=== PATIENT | male | born 1935 | race Caucasian/White ===

== ENCOUNTER 2021-04-26 11:14 | Emergency (ER) | payer OTHER ==
[2021-04-26 13:34] LABS: Absolute Lymphocytes (CBC) 1.4 K/uL (0.7-4.9); Basophils % 0.1 % (0-1.3); Hematocrit 34.3 % (39.6-49.0); Lymphocytes % 22.9 % (15.3-44.8); MPV 7.4 fL (7.6-11.3); RBC Red Blood Cell Count 3.34 M/uL (4.33-5.43)
[2021-04-26 13:36] LABS: Protime INR 0.98
[2021-04-26 13:53] LABS: ALT/SGPT 29 U/L (12-78); AST/SGOT 27 U/L (15-37); Albumin 3.2 g/dL (3.4-5.0); Alkaline Phosphatase 167 U/L (45-117); BUN Blood Urea Nitrogen 20 mg/dL (7-18); Bicarbonate 28 mmol/L (21-32); Bilirubin Direct < 0.1 mg/dL (0-0.2); Bilirubin Total 0.2 mg/dL (0.2-1.0); Glucose Level 174 mg/dL (74-106); Magnesium 2.2 mg/dL (1.8-2.4); NT PRO-BNP 1092 pg/mL (<450); Potassium 4.7 mmol/L (3.5-5.1); Protein, Total 7.2 g/dL (6.4-8.2); Sodium Level 141 mmol/L (136-145); Troponin (Emerg Dept Use Only) < 0.02 ng/mL (0.0-0.045)
--- NOTE | 2021-04-26 16:10 | RAD REPORT ---
EXAM DESCRIPTION: CT - Head Brain Wo Cont - 04/26/2021 3:56 pm CLINICAL HISTORY: cva COMPARISON: No comparisons TECHNIQUE: Axial 5 mm thick images of the head were obtained without IV contrast. All CT scans are performed using dose optimization technique as appropriate and may include automated exposure control or mA/KV adjustment according to patient size. FINDINGS: No intracranial hemorrhage is present. There is an extensive vasogenic edema pattern throu ghout the frontal and parietal lobe in the right cerebral hemisphere. A 2.8 centimeter more cystic or hypodense collection is present in the right parietal lobe. This is a pattern typical for primary or metastatic malignant process. There is some cerebral mass effect but no more than 1-2 mm of right to left shift. No acute cortical based infarction identified. Patient has underlying atrophy and chroni c ischemic change. There is heterogeneity and diminished attenuation in the each cerebellar hemispher e concerning for vasogenic edema as well. No abnormal extra-axial fluid collections. Ventricles are i n proportion to volume loss. Mastoid air cells and visualized portions of the paranasal sinuses are clear. No acute bony findings. IMPRESSION: Significant vasogenic edema pattern in the right cerebral frontal and parietal lobes wit h 2.8 centimeter cystic component in the right parietal lobe. Probable vasogenic edema pattern in each cerebellar hemisphere. 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 Primary malignancy is possible as well. No intracranial hemorrhage present. Mass effect is minimal with no more than 1-2 mm of right to left midline shift.
--- NOTE | 2021-04-26 16:54 | RAD REPORT ---
EXAM DESCRIPTION: CT - Chest Abdomen Pelvis W Cont - 04/26/2021 4:37 pm CLINICAL HISTORY: concern for metastatic disease, evidence for malignant process of the head COMPARISON: No comparisons TECHNIQUE: Following dynamic enhancement using 100 milliliters nonionic IV contrast, axial imaging o f the chest, abdomen and pelvis was performed. Biphasic technique was utilized through the abdomen. No oral contrast administered. All CT scans are performed using dose optimization technique as appropriate and may include automated exposure control or mA/KV adjustment according to patient size. FINDINGS: Pleural and parenchymal scarring changes are present in the right apex. There is a small l oculated pleural effusion at the right lung base posteriorly. There is a curvilinear focus of soft ti ssue abutting the loculated pleural fluid in the posterior right base approximately 4 cm in length by 1 cm transverse. This is more likely be scarring than mass lesion. There postsurgical changes eviden t at the right hilum from a prior lobectomy. No history was provided to indicate prior lung malignanc y history. There are scarring changes present associated with the prior lobectomy change. Overall rig ht hemithorax volume is reduced relative to the hyperexpanded left lung field. Left lung field is jess ar. No left-sided pleural effusion. There is no pneumothorax. Coronary artery calcifications are present. No cardiomegaly or pericardial effusion. No significant a ortic or pulmonary arterial tree finding. Mediastinal and hilar regions show no mass or abnormal lymp hadenopathy. No chest wall mass or axillary lymphadenopathy. The liver, spleen and pancreas show no suspicious findings. Gallbladder and biliary tree are unremark able. Gallstones can be occult on CT imaging. Symmetric renal function is seen with no suspicious ma ss or hydronephrosis. No adrenal abnormalities. No colon mass or acute GI process identified. Appendix is normal. Disc and bone degenerative changes are present. No pathologic bone process identified. No significant vascular findings. Dense arterial tree calcifications are present. IMPRESSION: No malignant mass, lymphadenopathy or other finding for active malignant process of the chest, abdomen and pelvis. Patient has evidence for a right lobectomy with postsurgical changes evident at the hilum and a locul ated small pleural effusion in the posterior gutter. Nodular parenchyma adjacent to the loculated ple ural effusion is probably scarring. This is not a typical appearance for mass. Correlation is needed with a history of right-sided lung malignancy necessitating a lobectomy.
--- NOTE | 2021-04-26 18:10 | RAD REPORT ---
EXAM DESCRIPTION: MRI - Brain W/Wo Cont - 04/26/2021 5:22 pm CLINICAL HISTORY: vasogenic edema with mass, abnormal CT of the head, subsequent history since the C T head and CT chest abdomen pelvis examinations indicates right-sided lung cancer history detailed by patient as stage I COMPARISON: Head Brain Wo Cont dated 04/26/2021 TECHNIQUE: Sagittal and axial T1-weighted images were obtained. Axial PD/heavily T2-weighted and T2- FLAIR images were obtained along with axial DWI/ADC mapping sequences. Coronal heavily T2 weighted s equence obtained. Axial and coronal post-contrast T1-weighted images were also obtained. A ml Multi higinio contrast following utilized. Coronal T2 hemo sequence obtained FINDINGS: The extensive right cerebral vasogenic edema pattern seen on the CT study is evident on th is examination most pronounced in the parietal lobe. The cystic mass component seen on the CT study i s also present. This is a 4.7 centimeter lobulated mass. This is predominantly cystic. However, the p ostcontrast images show a thickened irregular nodular enhancement. The vasogenic edema pattern does e xtend into the cortex where there is sulcal effacement in the right parietal lobe. The edema and mass effect create 2 mm of right to left midline shift. Bilateral cerebellar hemisphere edema pattern is also present. There is a 12 millimeter enhancing le ky in inferior right cerebellum and a 10 millimeter enhancing lesion in the superior left cerebellu m. There are several additional punctate areas of enhancement in each cerebellum. Punctate areas of e nhancement are seen in the dimitri. Post-contrast imaging shows numerous additional small enhancing lesi ons scattered throughout both cerebral hemispheres. The smaller lesions do not have any significant e nathalia component. The T2 hemo sequence shows serpiginous hypointense areas around the periphery of the right parietal m ass. There is hypointense signal is well around the 2 main cerebellum lesions. No acute intraparenchy mal hematoma is present. No dural thickening or enhancement. No globe or orbital content abnormality. IMPRESSION: Very extensive intracranial metastatic process is present. The patient has a dominant 4. 7 centimeter lobulated mixed solid and cystic enhancing mass with surrounding vasogenic edema within the right parietal lobe. This creates 2 mm of right to left midline shift. The patient has numerous additional metastatic lesions as detailed scattered throughout both cerebral hemispheres, both cerebellar hemispheres and the brainstem.
--- NOTE | 2021-04-26 18:39 | EDPHYS ---
Physician Documentation [facility] Name: Fahad Gage Age: 85 yrs Sex: Male : 1935 Arrival Date: 04/26/2021 Time: 11:15 Bed 5 Private MD: ED Physician Julian Velasco HPI: 04/26 15:50 This 85 yrs old Male presents to ER via Wheelchair with complaints of LEFT SIDE jr8 WEAKNESS. 15:50 This is an 85-year-old male patient that presented to the emergency room for increased jr8 left-sided weakness. Family stated that the weakness began on Sunday and then has continued since then getting worse each day. Patient stated that he is having trouble with walking and ability to utilize his left hand with activities that he normally performs during the day. Has had mild right-sided headaches but denies any other neurologic symptoms at this time.. Historical: - Allergies: 13:03 Anti Inflammatory; ld1 - PMHx: 13:03 Diabetes mellitus; Chronic Kidney Disease; Hypertensive disorder; Anemia; Neuropathy; ld1 Tremors; - PSHx: 13:03 Open heart surgery; Lobectomy of lung; ld1 - Immunization history:: Adult Immunizations not up to date, Client reports having NOT received the Covid vaccine. - Social history:: Smoking status: Patient denies any tobacco usage or history of. Patient/guardian denies using alcohol. ROS: 16:24 Eyes: Negative for injury, pain, redness, and discharge, ENT: Negative for injury, jr8 pain, and discharge, Neck: Negative for injury, pain, and swelling, Cardiovascular: Negative for chest pain, palpitations, and edema, Respiratory: Negative for shortness of breath, cough, wheezing, and pleuritic chest pain, Abdomen/GI: Negative for abdominal pain, nausea, vomiting, diarrhea, and constipation, Back: Negative for injury and pain, MS/Extremity: Negative for injury and deformity, Skin: Negative for injury, rash, and discoloration. 16:24 Neuro: Positive for headache, numbness, weakness. Exam: 16:24 Radiologist reports: Amount of vasogenic edema to the right cerebrum with lesion in the jr8 right occipital lobe 16:24 Eyes: Pupils equal round and reactive to light, extra-ocular motions intact. Lids and lashes normal. Conjunctiva and sclera are non-icteric and not injected. Cornea within normal limits. Periorbital areas with no swelling, redness, or edema. ENT: Nares patent. No nasal discharge, no septal abnormalities noted. Tympanic membranes are normal and external auditory canals are clear. Oropharynx with no redness, swelling, or masses, exudates, or evidence of obstruction, uvula midline. Mucous membranes moist. Neck: Trachea midline, no thyromegaly or masses palpated, and no cervical lymphadenopathy. Supple, full range of motion without nuchal rigidity, or vertebral point tenderness. No Meningismus. Cardiovascular: Regular rate and rhythm with a normal S1 and S2. No gallops, murmurs, or rubs. Normal PMI, no JVD. No pulse deficits. Respiratory: Lungs have equal breath sounds bilaterally, clear to auscultation and percussion. No rales, rhonchi or wheezes noted. No increased work of breathing, no retractions or nasal flaring. Abdomen/GI: Soft, non-tender, with normal bowel sounds. No distension or tympany. No guarding or rebound. No evidence of tenderness throughout. Skin: Warm, dry with normal turgor. Normal color with no rashes, no lesions, and no evidence of cellulitis. MS/ Extremity: Pulses equal, no cyanosis. Neurovascular intact. Full, normal range of motion. 16:24 Neuro: Orientation: to person, place, time \\T\\ situation. Mentation: is normal, Memory: is normal, immediate memory is intact, recent memory is intact, remote memory is intact, Cranial nerves: CN I not tested, CN II- XII are normal as tested, visual degroot are intact. extraocular movements are intact, Facial palsy and sensory deficits are absent. Nystagmus is absent. Speech is clear and appropriate. Tongue strength is normal, Cerebellar function: dysmetria is noted on the left, Motor: moves all fours, Sensation: numbness, that is mild, of the face and left arm, Gait: is unsteady, seizure activity, is not displayed by the patient, Abnormal movements: there are no abnormal movements. Vital Signs: 12:57 BP 185 / 74; Pulse 74; Resp 18; Temp 97.4(TE); Pulse Ox 100% on R/A; Weight 75.3 kg; ld1 Height 5 ft. 9 in. (175.26 cm); Pain 0/10; 15:24 BP 130 / 110; Pulse 74; Resp 14 S; Pulse Ox 99% on R/A; jd3 18:35 BP 125 / 96; Pulse 70; Resp 16 S; Pulse Ox 100% on R/A; jd3 20:47 BP 145 / 86; Pulse 69; Resp 10; Pulse Ox 98% on R/A; Pain 0/10; tw5 12:57 Body Mass Index 24.51 (75.30 kg, 175.26 cm) ld1 NIH Stroke Scale Scores: 15:17 NIHSS Score: 3 jd3 16:24 NIHSS Score: 4 jr8 MDM: 15:03 Patient medically screened. jr8 18:39 Data reviewed: vital signs, nurses notes, lab test result(s), EKG, radiologic studies, [facility] CT scan, MRI, plain films. Data interpreted: Pulse oximetry: on room air is 100 %. Interpretation: normal. Counseling: I had a detailed discussion with the patient and/or guardian regarding: the historical points, exam findings, and any diagnostic results supporting the discharge/admit diagnosis, lab results, radiology results, the need to transfer to another facility, [facility] does not immediately have the required specialist. 04/26 13:19 Order name: Basic Metabolic Panel; Complete Time: 15: [facility] 04/26 13:19 Order name: CBC with Diff; Complete Time: 15: 04/26 13:19 Order name: LFT's; Complete Time: 15: [facility] 04/26 13:19 Order name: Magnesium; Complete Time: 15: [facility] 04/26 13:19 Order name: NT PRO-BNP; Complete Time: 15:03 [facility] 04/26 13:19 Order name: PT-INR; Complete Time: 15:03 [facility] 04/26 13:19 Order name: Troponin (emerg Dept Use Only); Complete Time: 15: [facility] 04/26 15:21 Order name: CT Head Brain wo Cont; Complete Time: 16:17 [facility] 04/26 16:18 Order name: CT Chest, Abdomen, Pelvis - W/Contrast; Complete Time: 16:58 [facility] 04/26 16:34 Order name: COVID-19 SARS RT PCR (Document "Date of Onset" if Symptomatic) 04/26 16:34 Order name: SARS-COV-2 RT PCR; Complete Time: 19:38 EDMS 04/26 17:22 Order name: Brain W/Wo Cont; Complete Time: 18:16 EDMS 04/26 13:12 Order name: EKG - Nurse/Tech; Complete Time: 13:16 ld1 04/26 13:19 Order name: EKG; Complete Time: 13:20 ld1 04/26 13:19 Order name: Cardiac monitoring; Complete Time: 15:05 ld1 04/26 13:19 Order name: EKG - Nurse/Tech; Complete Time: 13:19 ld1 04/26 13:19 Order name: IV Saline Lock; Complete Time: 13:19 ld1 04/26 13:19 Order name: Labs collected and sent; Complete Time: 13:19 ld1 04/26 13:19 Order name: O2 Per Protocol; Complete Time: 13:19 ld1 04/26 13:19 Order name: O2 Sat Monitoring; Complete Time: 13:19 ld1 Administered Medications: 18:50 Drug: Decadron - Dexamethasone 10 mg Route: IVP; Site: left antecubital; jd3 20:48 Follow up: Response: No adverse reaction tw5 21:15 Drug: Primidone 100 mg Route: PO; tw5 Disposition: 04/27 09:23 Co-signature as Attending Physician, Julian Velasco MD I agree with the assessment and luiza plan of care. Disposition Summary: 04/26/21 18:39 Transfer Ordered Transfer Location: [facility] jr8 Reason: Higher level of care jr8 Condition: Fair jr8 Problem: new jr8 Symptoms: are unchanged jr8 Accepting Physician: Dr. Macias(04/26/21 22:36) df1 Diagnosis - Neoplasm of uncertain behavior of brain, unspecified jr8 - Cerebral edema - Vasogenic Edema jr8 - Ataxic gait jr8 Forms: - Medication Reconciliation Form jr8 - SBAR form jr8 NIH Stroke Scale - NIH Stroke Score Date: 04/26/2021 Time: 15:17 Total Score = 3 1a. Level of Consciousness (LOC) - 0(Alert) 1b. Level of Consciousness (LOC) (Month \\T\\ Age) - 0(Both) 1c. LOC Commands (Open \\T\\ Closes Eyes/Booster Operator) - 0(Both) 2. Best Gaze (Lateral Gaze Paresis) - 0(Normal) 3. Visual Field Loss - 0(No visual loss) 4. Facial Palsy - 0(Normal) 5a. Left Arm: Motor (10-second hold) - 1(Drift) 5b. Right Arm: Motor (10-second hold) - 0(No drift) 6a. Left Leg: Motor (5-second hold - always test supine) - 1(Drift) 6b. Right Leg: Motor (5-second hold - always test supine) - 0(No drift) 7. Limb Ataxia (finger/nose \\T\\ heel/nunez - test with eyes open) - 1(Present in one limb) 8. Sensory Loss (pinprick arms/legs/face) - 0(Normal) 9. Best Language: Aphasia (description/naming/reading) - 0(No aphasia) 10. Dysarthria (speech clarity - read or repeat words) - 0(Normal) 11. Extinction and Inattention (visual/tactile/auditory/spatial/personal) - 0(No abnormality) Initials: jd3 NIH Stroke Scale - NIH Stroke Score Date: 04/26/2021 Time: 16:24 Total Score = 4 1a. Level of Consciousness (LOC) - 0(Alert) 1b. Level of Consciousness (LOC) (Month \\T\\ Age) - 0(Both) 1c. LOC Commands (Open \\T\\ Closes Eyes/Booster Operator) - 0(Both) 2. Best Gaze (Lateral Gaze Paresis) - 0(Normal) 3. Visual Field Loss - 0(No visual loss) 4. Facial Palsy - 0(Normal) 5a. Left Arm: Motor (10-second hold) - 1(Drift) 5b. Right Arm: Motor (10-second hold) - 0(No drift) 6a. Left Leg: Motor (5-second hold - always test supine) - 1(Drift) 6b. Right Leg: Motor (5-second hold - always test supine) - 0(No drift) 7. Limb Ataxia (finger/nose \\T\\ heel/nunez - test with eyes open) - 1(Present in one limb) 8. Sensory Loss (pinprick arms/legs/face) - 1(Mild to moderate loss) 9. Best Language: Aphasia (description/naming/reading) - 0(No aphasia) 10. Dysarthria (speech clarity - read or repeat words) - 0(Normal) 11. Extinction and Inattention (visual/tactile/auditory/spatial/personal) - 0(No abnormality) Initials: lima Signatures: Dispatcher [employer] EDMS Julian Velasco MD MD cha Roszak, Josh, PA PA jr8 Torito Mancilla RN RN jd3 Jessica Buck RN RN ld1 Nicole Nichole df1 Yesenia Tse tw5 Corrections: (The following items were deleted from the chart) 04/26 13:09 13:03 Allergies: No Known Allergies; ld1 ld1 17:22 16:19 Brain Wo Cont+MRI.RAD.BRZ ordered. [facility] EDMS 21:52 18:39 [facility] jr8 jr8 22:36 21:52 Dr. Macias jr8 df1
--- NOTE | 2021-04-26 18:39 | ER ---
Nurse's Notes [facility] Name: Fahad Gage Age: 85 yrs Sex: Male : 1935 Arrival Date: 04/26/2021 Time: 11:15 Bed 5 Private MD: Diagnosis: Neoplasm of uncertain behavior of brain, unspecified;Cerebral edema-Vasogenic Edema;Ataxic gait Presentation: 04/26 12:57 Chief complaint: Patient states: I received an injection for low iron about a week ago ld1 - Sunday I began losing my balance and feeling extremely dizzy, I have had three falls this week. Pt reports hitting head yesterday when he fell. Sunday noticed the left side of his body became weak and left foot has been dragging. Coronavirus screen: At this time, the client does not indicate any symptoms associated with coronavirus-19. Ebola Screen: No symptoms or risks identified at this time. Initial Sepsis Screen: Does the patient meet any 2 criteria? No. Patient's initial sepsis screen is negative. Does the patient have a suspected source of infection? No. Patient's initial sepsis screen is negative. Risk Assessment: Do you want to hurt yourself or someone else? Patient reports no desire to harm self or others. Onset of symptoms was April 26, 2021. 12:57 Method Of Arrival: Wheelchair ld1 12:57 Acuity: ELI 3 ld1 Triage Assessment: 13:03 General: Appears in no apparent distress. comfortable, Behavior is calm, cooperative, ld1 appropriate for age. Pain: Denies pain. EENT: No signs and/or symptoms were reported regarding the EENT system. Neuro: Level of Consciousness is awake, alert, obeys commands, Oriented to person, place, time, situation, Appropriate for age. Neuro: Reports dizziness, weakness in left hand, left foot, left arm and left leg. Cardiovascular: Capillary refill < 3 seconds Patient's skin is warm and dry. Respiratory: Airway is patent Respiratory effort is even, unlabored, Respiratory pattern is regular, symmetrical. GI: Abdomen is flat, non-distended. : No signs and/or symptoms were reported regarding the genitourinary system. Derm: No signs and/or symptoms reported regarding the dermatologic system. Musculoskeletal: No signs and/or symptoms reported regarding the musculoskeletal system. Historical: - Allergies: 13:03 Anti Inflammatory; ld1 - PMHx: 13:03 Diabetes mellitus; Chronic Kidney Disease; Hypertensive disorder; Anemia; Neuropathy; ld1 Tremors; - PSHx: 13:03 Open heart surgery; Lobectomy of lung; ld1 - Immunization history:: Adult Immunizations not up to date, Client reports having NOT received the Covid vaccine. - Social history:: Smoking status: Patient denies any tobacco usage or history of. Patient/guardian denies using alcohol. Screenin:17 Abuse screen: Denies threats or abuse. Nutritional screening: No deficits noted. jd3 Tuberculosis screening: No symptoms or risk factors identified. VAN Screening: Arm Drift: Minor drift. Visual Disturbance: No visual disturbance noted. Aphasia: No aphasia noted. Neglect: No neglect noted. Fall Risk Ambulatory Aid- None/Bed Rest/Nurse Assist (0 pts). Gait- Normal/Bed Rest/Wheelchair (0 pts) Mental Status- Oriented to own ability (0 pts). Total Calabrese Fall Scale indicates No Risk (0-24 pts). Assessment: 15:21 General: Appears comfortable, Behavior is calm, cooperative, appropriate for age. Pain: jd3 Denies pain. Neuro: Level of Consciousness is awake, alert, obeys commands, Oriented to person, place, time, situation, Orthopedic Physical Therapist are weak on left Weakness in left arm(s) leg(s) Gait is unsteady, Speech is normal, Facial symmetry appears normal, Pupils are PERRLA, Intact Reports numbness weakness in left side of body since 04-23-21. Cardiovascular: Denies chest pain, Capillary refill < 3 seconds Patient's skin is warm and dry. Rhythm is regular. Respiratory: Airway is patent Respiratory effort is even, unlabored, Respiratory pattern is regular, symmetrical, Denies cough, shortness of breath. GI: No signs and/or symptoms were reported involving the gastrointestinal system. : No signs and/or symptoms were reported regarding the genitourinary system. EENT: No signs and/or symptoms were reported regarding the EENT system. Derm: Skin is intact, Skin is dry, Skin is normal, Skin temperature is warm. Musculoskeletal: Range of motion: limited on left side of body due to weakness. 16:33 Reassessment: Patient appears in no apparent distress at this time. Patient and/or jd3 family updated on plan of care and expected duration. Pain level reassessed. Patient is alert, oriented x 3, equal unlabored respirations, skin warm/dry/pink. pt to go for MRI. 18:10 Reassessment: Patient appears in no apparent distress at this time. Patient and/or jd3 family updated on plan of care and expected duration. Pain level reassessed. Patient is alert, oriented x 3, equal unlabored respirations, skin warm/dry/pink. pt back from MRI. provider at bedside talking with family about plan of care. 20:47 General: Reports " I am hungry, I have not eaten all day" Nursing staff stated they tw5 would ask if patient is allowed anything by mouth. Pain: Denies pain. 21:15 General: Behavior is calm, cooperative, appropriate for age. tw5 Vital Signs: 12:57 BP 185 / 74; Pulse 74; Resp 18; Temp 97.4(TE); Pulse Ox 100% on R/A; Weight 75.3 kg; ld1 Height 5 ft. 9 in. (175.26 cm); Pain 0/10; 15:24 BP 130 / 110; Pulse 74; Resp 14 S; Pulse Ox 99% on R/A; jd3 18:35 BP 125 / 96; Pulse 70; Resp 16 S; Pulse Ox 100% on R/A; jd3 20:47 BP 145 / 86; Pulse 69; Resp 10; Pulse Ox 98% on R/A; Pain 0/10; tw5 12:57 Body Mass Index 24.51 (75.30 kg, 175.26 cm) ld1 NIH Stroke Scale Scores: 15:17 NIHSS Score: 3 jd3 16:24 NIHSS Score: 4 jr8 ED Course: 11:15 Patient arrived in ED. kc5 13:03 Triage completed. ld1 13:03 Arm band placed on right wrist. ld1 13:20 Inserted saline lock: 20 gauge in left antecubital area, using aseptic technique. Blood ld1 collected. 15:03 Johan Lombardi PA is PHCP. jr8 15:03 Julian Velasco MD is Attending Physician. jr8 15:05 Torito Mancilla RN is Primary Nurse. jd3 15:21 Patient has correct armband on for positive identification. Placed in gown. Bed in low jd3 position. Call light in reach. Side rails up X2. Adult w/ patient. monitor technician on. Pulse ox on. NIBP on. 15:56 CT Head Brain wo Cont In Process Unspecified. EDMS 16:38 CT Chest, Abdomen, Pelvis - W/Contrast In Process Unspecified. EDMS 17:22 Brain W/Wo Cont In Process Unspecified. EDMS 20:19 connected Johan Lombardi with the Hospitalist from [facility]. mw2 20:47 Door closed. Noise minimized. Moved to private room. Warm blanket given. Verbal tw5 reassurance given. 20:51 adminsitrative approval given by Milagros Moralez/ patient has been accepted to [address] bed 2426/ Dr. Donohue accepted the patient in transfer/ report to be called to [phone]. Administered Medications: 18:50 Drug: Decadron - Dexamethasone 10 mg Route: IVP; Site: left antecubital; jd3 20:48 Follow up: Response: No adverse reaction tw5 21:15 Drug: Primidone 100 mg Route: PO; tw5 Outcome: 18:39 ER care complete, transfer ordered by jr8 22:36 Patient left the ED. df1 NIH Stroke Scale - NIH Stroke Score Date: 04/26/2021 Time: 15:17 Total Score = 3 1a. Level of Consciousness (LOC) - 0(Alert) 1b. Level of Consciousness (LOC) (Month \\T\\ Age) - 0(Both) 1c. LOC Commands (Open \\T\\ Closes Eyes/Sat Act Instructor) - 0(Both) 2. Best Gaze (Lateral Gaze Paresis) - 0(Normal) 3. Visual Field Loss - 0(No visual loss) 4. Facial Palsy - 0(Normal) 5a. Left Arm: Motor (10-second hold) - 1(Drift) 5b. Right Arm: Motor (10-second hold) - 0(No drift) 6a. Left Leg: Motor (5-second hold - always test supine) - 1(Drift) 6b. Right Leg: Motor (5-second hold - always test supine) - 0(No drift) 7. Limb Ataxia (finger/nose \\T\\ heel/nunez - test with eyes open) - 1(Present in one limb) 8. Sensory Loss (pinprick arms/legs/face) - 0(Normal) 9. Best Language: Aphasia (description/naming/reading) - 0(No aphasia) 10. Dysarthria (speech clarity - read or repeat words) - 0(Normal) 11. Extinction and Inattention (visual/tactile/auditory/spatial/personal) - 0(No abnormality) Initials: ryan NIH Stroke Scale - NIH Stroke Score Date: 04/26/2021 Time: 16:24 Total Score = 4 1a. Level of Consciousness (LOC) - 0(Alert) 1b. Level of Consciousness (LOC) (Month \\T\\ Age) - 0(Both) 1c. LOC Commands (Open \\T\\ Closes Eyes/Sat Act Instructor) - 0(Both) 2. Best Gaze (Lateral Gaze Paresis) - 0(Normal) 3. Visual Field Loss - 0(No visual loss) 4. Facial Palsy - 0(Normal) 5a. Left Arm: Motor (10-second hold) - 1(Drift) 5b. Right Arm: Motor (10-second hold) - 0(No drift) 6a. Left Leg: Motor (5-second hold - always test supine) - 1(Drift) 6b. Right Leg: Motor (5-second hold - always test supine) - 0(No drift) 7. Limb Ataxia (finger/nose \\T\\ heel/nunez - test with eyes open) - 1(Present in one limb) 8. Sensory Loss (pinprick arms/legs/face) - 1(Mild to moderate loss) 9. Best Language: Aphasia (description/naming/reading) - 0(No aphasia) 10. Dysarthria (speech clarity - read or repeat words) - 0(Normal) 11. Extinction and Inattention (visual/tactile/auditory/spatial/personal) - 0(No abnormality) Initials: jrRamírez Signatures: Dispatcher [employer] EDMS Johan Lombardi PA PA jr8 Torito Mancilla RN RN jd3 Rashad Ahuja mw2 Jessica Buck RN RN ld1 Nicole Nichole df1 Yesenia Tse tw5 Alicia Reynolds kc5 Corrections: (The following items were deleted from the chart) 13:09 13:03 Allergies: No Known Allergies; ld1 ld1 17:22 17:05 In radiology for Brain Wo Cont+[email or web address]. EDMS EDMS
[2021-04-26] MEDS ORDERED: dexAMETHasone 10 MG/ML VIAL ONE (18:40)
[2021-04-26] MEDS ORDERED: PRIMIDONE 50 MG TAB ONE (20:59)
[2021-04-26 23:05] VITALS: TEMP 97.4
[2021-04-26 23:09] VITALS: BP 145/86; O2SAT 98
--- NOTE | 2021-04-27 16:24 | EKG ---
Test Date: 2021-04-26 Test Time: 13:13:53 Pediatrics Teacher: MARCELA MEASUREMENT RESULTS: Intervals: Rate: 73 TN: 142 QRSD: 74 QT: 396 QTc: 436 [place]: P: 38 TN: 142 QRS: 18 T: 43 INTERPRETIVE STATEMENTS: Sinus rhythm with frequent premature ventricular complexes Otherwise normal ECG No previous ECG available for comparison Electronically Signed On 04-27-21 16:22:12 AIDS COUNSELOR by Kurt Pollard
== END 2021-04-26 22:36 | disposition short-term general hospital (02) ==
LOC: ER 11:14
DX: D49.6 Neoplasm of unspecified behavior of brain (principal); G93.6 Cerebral edema; R26.0 Ataxic gait; I12.9 Hypertensive chronic kidney disease with stage 1 through stage 4 chronic kidney disease, or unspecified chronic kidney disease; E11.22 Type 2 diabetes mellitus with diabetic chronic kidney disease; N18.9 Chronic kidney disease, unspecified; Z20.822 Contact with and (suspected) exposure to COVID-19
CPT/HCPCS: 93005; 85025; 80048; 36415; 83735; 85610; 80076; 84484; 83880; 70450; 71260; 74177; 70553; 96374; 99284; U0003; J1100